=== PATIENT | female | born 1995 | race Caucasian/White ===

== ENCOUNTER 2019-11-04 17:44 | Emergency (ER) | payer OTHER, SELFPAY ==
[2019-11-04 17:58] VITALS: BP 115/55; PULSE 95; RESP 20; TEMP 37.1; O2SAT 100
--- NOTE | 2019-11-04 18:21 | ED.GENADULT ---
HPI - General Adult General Chief complaint: Ear Stated complaint: Sore Throat, ear ache Time Seen by Provider: 11/04/19 18:21 Source: patient and RN notes reviewed Mode of arrival: ambulatory Limitations: no limitations History of Present Illness HPI narrative: This is a 24 years old female presented office for evaluation of throat pain since last night. Associated with stuffy nose, left ear pain, and a little cough. She did receive influenza vaccine for the season. Denies sick contact at home however there is a lot of sick people at work. Related Data Home Medications Medication Instructions Recorded Confirmed fexofenadine [Rosa Allergy] 180 mg PO DAILY 11/04/19 11/04/19 linaclotide [Linzess] 72 mcg PO DAILY 11/04/19 11/04/19 venlafaxine 75 mg PO DAILY 11/04/19 11/04/19 Allergies Allergy/AdvReac Type Severity Reaction Status Date / Time No Known Allergies Allergy Verified 11/04/19 17:53 Review of Systems Review of Systems: Narrative: CONSTITUTIONAL: Denies fever. Reports hot/cold is normal for her ENT: Reports congestion, sore throat, otalgia. CARDIOVASCULAR: Denies chest pain RESPIRATORY: Denies dyspnea, wheezing. Reports cough GASTROINTESTINAL: Denies abdominal pain, nausea, vomiting. Reports chronic diarrhea due to IBS. GENITOURINARY: Denies urinary symptoms or discharge SKIN: Denies rash MUSCULOSKELETAL: Denies acute back pain NEUROLOGIC: Denies lightheaded PMFSH Past Medical History Medical History (Updated 11/04/19 @ 18:39 by SUBHA Howard) Generalized anxiety disorder IBS (irritable bowel syndrome) Comments At time of signature, I agree with nursing past medical, surgical, social and family history. There is no relevant family history pertinent to the presenting complaint. Exam Narrative: Exam Narrative: GENERAL: This is a well-nourished, well-developed patient, in no apparent distress. EYES: Sclera clear/white. Vision is grossly intact. EARS: External ears normal, auditory canals clear and without drainage, TMs noted fluid level without perforation. Hearing grossly intact. NOSE: External nose normal with no obvious nasal discharge, nares without redness, no rhinorrhea. THROAT: Mucous membranes moist, posterior pharynx erythema and edematous NECK: Neck supple, tender with lymphadenopathy CARDIOVASCULAR: Regular rate and rhythm without murmurs, gallops, or rubs. RESPIRATORY: Clear to auscultation. Breath sounds equal bilaterally. No wheezes, rales, or rhonchi. GASTROINTESTINAL: Abdomen soft, non-tender, nondistended. Bowel sounds are active. No hepato-splenomegaly, or palpable masses. No guarding. SKIN: warm, intact with no suspicious lesions or rash, good texture and turgor. NEURO: awake, alert, and oriented to person, place and time. There were no obvious focal neurologic abnormalities. Steady gait [place] Coma Scale Eye Opening: Spontaneous 4 [place] Coma Scale Motor: Obeys Commands 6 [place] Coma Scale Verbal: Oriented 5 Course Vital Signs Vital signs: Vital Signs Temperature 98.8 F 11/04/19 17:58 Pulse Rate 95 11/04/19 17:58 Respiratory Rate 20 11/04/19 17:58 Blood Pressure 115/55 L 11/04/19 17:58 Pulse Oximetry 100 11/04/19 17:58 Temperature 98.8 F 11/04/19 17:58 Pulse Rate 95 11/04/19 17:58 Respiratory Rate 20 11/04/19 17:58 Blood Pressure 115/55 L 11/04/19 17:58 Pulse Oximetry 100 11/04/19 17:58 Medical Decision Making MDM Narrative Medical decision making narrative: Discharge instructions reviewed with patient, as well as provided in writing per nursing staff. The instructions also include specific and strict return/GO TO THE ER as well as f/u information. All questions have been answered, and the patient deny any further questions with discharge and discharge plan. Differential Diagnosis Differential Diagnosis: pneumonia, Allergic Rhinitis, Upper respiratory cough syndrome, Pharyngitis, Sinusitis, Bronchitis, otitis media
== END 2019-11-04 18:48 | disposition home or self-care (01) ==
PROVIDERS: Emergency Provider Nurse Practitioner
DX: J02.0 Streptococcal pharyngitis (principal); F41.9 Anxiety disorder, unspecified
CPT/HCPCS: 87804; 87880; 99213; G0463